=== PATIENT | male | born 1995 | race Caucasian/White ===

== ENCOUNTER 2021-05-14 12:35 | Emergency (ER) | payer MEDICAID ==
[~2021-05-14] VITALS: Ht 185.4 cm; Wt 99.8 kg
[2021-05-14 12:50] VITALS: BP_SYST 165
--- NOTE | 2021-05-14 12:55 | NUR ---
EVON AND ASKED TO WAIT IN THE WAITING ROOM
--- NOTE | 2021-05-14 13:10 | NUR ---
Patient left without being seen.
== END 2021-05-14 13:10 | disposition left against medical advice (07) ==
LOC: SED 12:35
DX: F10.239 Alcohol dependence with withdrawal, unspecified (principal); Z53.21 Procedure and treatment not carried out due to patient leaving prior to being seen by health care provider